=== PATIENT | male | born 1945 | race Caucasian/White ===

== ENCOUNTER 2016-04-27 09:56 | Day surgery (SDC) | payer OTHER, MEDICARE ==
[2016-04-27 10:39] VITALS: BMI 31.9
[2016-04-27] MEDS ORDERED: PROPOFOL 20 ML ONE ×2 (11:21)
[2016-04-27 12:07] VITALS: TEMP 98.1
[2016-04-27 12:43] VITALS: PULSE 63
[2016-04-27 12:55] VITALS: BP 108/62
--- NOTE | 2016-04-27 14:10 | EKG ---
Test Reason : Blood Pressure : / mmHG Vent. Rate : 061 BPM Atrial Rate : 061 BPM P-R Int : 210 ms QRS Dur : 140 ms QT Int : 466 ms P-R-T Axes : 084 079 -09 degrees QTc Int : 469 ms SINUS RHYTHM WITH 1ST DEGREE A-V BLOCK RIGHT BUNDLE BRANCH BLOCK ABNORMAL ECG WHEN COMPARED WITH ECG OF 05-MAR-2015 15:27, T WAVE INVERSION NO LONGER EVIDENT IN ANTERIOR LEADS Confirmed by MALACHI KUMAR, NICOLE ([id number]) on 04/27/2016 2:10:47 PM Referred By: Valentino Khan Confirmed By:NICOLE LY MD
== END 2016-04-27 12:56 | disposition home or self-care (01) ==
LOC: JASU-ENDO 09:56 → JOR 09:56 → JASU-ENDO 12:56
PROVIDERS: ATTEND Internal Medicine Cardiovascular Disease
PROC: 5A2204Z Restoration of Cardiac Rhythm, Single (ICD-10-PCS; principal; 2016-04-27 11:30)
DX: I48.91 Unspecified atrial fibrillation (principal)
CPT/HCPCS: 92960; 93005; 93010

== ENCOUNTER 2017-08-08 07:56 | Day surgery (SDC) | payer OTHER, MEDICARE ==
[2017-08-07 12:47] VITALS: BMI 33.7
[2017-08-08] MEDS ORDERED: PROPOFOL 20 ML ONE ×2 (08:52)
[2017-08-08] MEDS ORDERED: ETOMIDATE 20 MG/10 ML AMPUL IVPUSH ONE (09:13)
[2017-08-08 10:13] VITALS: TEMP 97.8
[2017-08-08 11:25] VITALS: BP 128/73; PULSE 80
--- NOTE | 2017-08-09 14:20 | PATH ---
Surgical Pathology Report Patient Name: [facility]. Rec. #: [id number] /Age/Gender: 1945 (Age: 71) / M Account: [id number] Location: ASU-ENDOSCOPY Taken: 08/08/2017 Received: 08/08/2017 Reported: 08/09/2017 Physicians: Lillie Louis M.D. Specimen(s) Received A: BX SECOND PORTION DUODENUM AMD BULB B: ANTRUM AND BODY C: BX ESOPHAGUS SCHATZI'S D: BX PROXIMAL TRANSVERSE COLON E: POLYP RIGHT COLON F: BX HEPATIC FLEXURE POLYP Clinical History Laryngoesophageal reflux, history of cecal adenoma, ulcer Postoperative diagnosis: Erosive antral gastritis, colon polyps, diverticulosis Final Diagnosis A. DUODENUM, SECOND PORTION AND DUODENAL BULB, BIOPSY: DUODENAL MUCOSA WITH ACUTE AND CHRONIC DUODENITIS. B. STOMACH, ANTRUM AND BODY, BIOPSY: GASTRIC ANTRUM AND BODY MUCOSA WITH MILD CHRONIC ACTIVE GASTRITIS. IMMUNOHISTOCHEMICAL STAIN FOR H. PYLORI IS NEGATIVE. C. ESOPHAGUS, SCHATZI'S, BIOPSY: SQUAMOUS MUCOSA WITHOUT SIGNIFICANT PATHOLOGIC FINDINGS. D. PROXIMAL TRANSVERSE COLON, POLYPS, BIOPSY: TUBULAR ADENOMA(S). E. COLON, RIGHT, POLYP, BIOPSY: TUBULAR ADENOMA. F. COLON, HEPATIC FLEXURE, POLYP, BIOPSY: TUBULAR ADENOMA. Electronically Signed Harmony Belle M.D. Gross Description A. Received in formalin, labeled "biopsy second portion of duodenum and bulb" are 2 dougherty, irregular portions of soft tissue measuring 0.5 and 0.6 cm. in greatest dimension. The specimens are submitted in toto in one cassette. B. Received in formalin, labeled "biopsy gastric antrum and body" are 4 dougherty, irregular portions of soft tissue ranging from 0.2-0.5 cm. in greatest dimension. The specimens are submitted in toto in one cassette. C. Received in formalin, labeled "biopsy esophagus Schatzki's" are 2 dougherty, irregular portions of soft tissue averaging 0.1 cm. in greatest dimension. The specimens are submitted in toto in one cassette. D. Received in formalin, labeled "biopsy proximal transverse colon polyp" are 3 dougherty, irregular portions of soft tissue ranging from 0.2-0.4 cm. in greatest dimension. The specimens are submitted in toto in one cassette. E. Received in formalin, labeled "biopsy right colon polyp" is a dougherty, irregular portion of soft tissue measuring 0.5 cm. in greatest dimension. The specimen is submitted in toto in one cassette. F. Received in formalin, labeled "biopsy polyp hepatic flexure" are 5 dougherty, irregular portions of soft tissue ranging from 0.2-0.7 cm. in greatest dimension. The specimens are submitted in toto in one cassette. 08/08/2017 [facility]08/08/2017
== END 2017-08-08 11:25 | disposition home or self-care (01) ==
LOC: JASU-ENDO 07:56
PROVIDERS: ATTEND Internal Medicine Gastroenterology
PROC: 0DBL8ZX Excision of Transverse Colon, Via Natural or Artificial Opening Endoscopic, Diagnostic (ICD-10-PCS; 2017-08-08)
PROC: 0DBL8ZX Excision of Transverse Colon, Via Natural or Artificial Opening Endoscopic, Diagnostic (ICD-10-PCS; 2017-08-08)
PROC: 0DB98ZX Excision of Duodenum, Via Natural or Artificial Opening Endoscopic, Diagnostic (ICD-10-PCS; 2017-08-08)
PROC: 0DB68ZX Excision of Stomach, Via Natural or Artificial Opening Endoscopic, Diagnostic (ICD-10-PCS; 2017-08-08)
PROC: 0DB38ZX Excision of Lower Esophagus, Via Natural or Artificial Opening Endoscopic, Diagnostic (ICD-10-PCS; 2017-08-08)
PROC: 0DBK8ZX Excision of Ascending Colon, Via Natural or Artificial Opening Endoscopic, Diagnostic (ICD-10-PCS; principal; 2017-08-08 09:00)
DX: Z86.010 Personal history of colon polyps (principal); D12.2 Benign neoplasm of ascending colon; D12.3 Benign neoplasm of transverse colon; K57.30 Diverticulosis of large intestine without perforation or abscess without bleeding; K64.8 Other hemorrhoids; K29.50 Unspecified chronic gastritis without bleeding; K29.80 Duodenitis without bleeding; K22.2 Esophageal obstruction; E03.9 Hypothyroidism, unspecified; E78.5 Hyperlipidemia, unspecified
CPT/HCPCS: 88305-TC; 88342-TC

== ENCOUNTER 2018-03-28 20:20 | Emergency (ER) | payer OTHER, MEDICARE ==
[2018-03-28 20:35] VITALS: BP 150/94; PULSE 90; TEMP 98.1; BMI 32.3
--- NOTE | 2018-03-28 20:40 | PDOC ---
History of Present Illness - General History Source: Patient Exam Limitations: No Limitations - History of Present Illness Initial Comments: 03/28/18 21:10 The patient is a 72 year old male, with a significant PMH of coronary artery disease, NIDDM,diabetic nephropathy, colon polys, HTN, HLD, and hypothyroidism, who presents to the emergency department complaining of a constant cough that began on 03/25/2018. The patient states he went to his PCP a few days ago where he was prescribed and completed his ZPAC medication. He also mentioned he went to his PCP today again for the same issue and was prescribed Augmentin. The patient note phlegm is white in nature accompanied with mild wheezing. The patient denies chest pain, shortness of breath, headache and dizziness. Denies fever, chills, nausea, vomit, diarrhea and constipation. PAST MEDICAL HISTORY: Mentioned in HPI PAST SURGICAL HISTORY: appendectomy, CABG, cholecystectomy FAMILY HISTORY: no pertinent history SOCIAL HISTORY: Pt lives with family and is employed. MEDICATIONS: reviewed ALLERGIES: As per nursing notes Adult ROS General: No fevers or chills, no weakness, no weight loss HEENT: No change in vision. No sore throat. No ear pain CardioVascular: No chest pain or shortness of breath Respiratory:+cough. No wheezing. Gastrointestinal: no nausea, vomiting, diarrhea or constipation, No rectal bleeding Genitourinary: No dysuria, hematuria, or frequency Musculoskeletal: No joint or muscle pain or swelling Neurologic: No headache, vertigo, dizziness or loss of consciousness Psychiatric: nor depression Skin: No rashes or easy bruising Endocrine: no increased thirst or abnormal weight change Allergic: no skin or latex allergy All other systems reviewed and normal Adult Exam: General: Well-nourished well-developed individual, no acute distress HEENT: Throat: Normal, tonsils normal, no erythema or exudate Neck: Supple, no meningeal signs, no lymphadenopathy Eyes::Pupils equal reactive and round, extraocular motion intact Chest: Nontender to palpation Cardiac: S1-S2 normal, regular rate and rhythm, no murmurs rubs or gallops Respiratory: +Coarse breath sounds bilaterally to all lung suero. Extremities: Warm, dry, no cyanosis, clubbing, or edema Skin: No rashes Neuro: Alert and oriented x3, nonfocal exam, grossly intact, normal gait Psych: Normal mood and affect <Oliva Vinson - Last Filed: 03/28/18 21:10> - General History Source: Patient Exam Limitations: No Limitations - History of Present Illness Initial Comments: 03/28/18 20:51 A portion of this note was documented by scribe services under my direction. I have reviewed the details of the note, within reason, and agree with the documentation with the following case summary and management plan written by me. Patient treated in the ED. Nursing notes are reviewed and incorporated into the medical decision-making. Vital signs reviewed. Assessment plan: This is 72-year-old male comes in complaining of cough requesting a chest x-ray. Patient has had a persistent cough for but he says several days however he has finished a Z-Blair for the cough and was started on Augmentin for today by his primary care doctor so it appears that he has had it for more than a few days. In addition that he was also started on Breo. Patient was convinced that he needed a chest x-ray and his doctor did not do it so he came in for further evaluation and a chest x-ray. Otherwise patient did denied any chest pain, shortness of breath, tightness in his chest or dyspnea with exertion. Patient does have a history of smoking but stopped many years ago Patient did have some coarse breath sounds so I will do a chest x-ray otherwise his lungs were clear 03/28/18 21:21 Chest x-ray: No acute pathology no significant change from May 2017 Patient discharged home no additional prescriptions given as he already has Augmentin and Breo <Noemy Jacob I - Last Filed: 03/28/18 21:23> - General Chief Complaint: Respiratory Stated Complaint: COUGH, WHEEZING Time Seen by Provider: 03/28/18 20:25 Past History <Oliva Vinson - Last Filed: 03/28/18 21:10> - Past Medical History Anemia: No Asthma: No Cancer: No Cardiac Disorders: Yes (CORONARY ARTERY DISEASE,STABLE ANGINA PECTORIS, AF) CVA: No COPD: No CHF: No Dementia: No Diabetes: Yes (NIDDM,DIABETIC NEPHROPATHY) GI Disorders: Yes (COLON POLYPS, BLEEDING ULCER 25 YRS AGO, H.PYLORI GASTRITIS) Disorders: No HTN: Yes Hypercholesterolemia: Yes Liver Disease: No Seizures: No Thyroid Disease: Yes (HYPOTHYROIDISM) - Surgical History Abdominal Surgery: No Appendectomy: Yes Cardiac Surgery: Yes (CABG 11/04, CARDIOVERSION) Cholecystectomy: Yes Lung Surgery: No Neurologic Surgery: No Orthopedic Surgery: No - Suicide/Smoking/Psychosocial Hx Smoking History: Unknown if ever smoked Have you smoked in the past 12 months: No If you are a former smoker, when did you quit?: 1984 Hx Alcohol Use: No Drug/Substance Use Hx: No Substance Use Type: None Hx Substance Use Treatment: No <Noemy Jacob I - Last Filed: 03/28/18 21:23> - Past Medical History Allergies/Adverse Reactions: Allergies Allergy/AdvReac Type Severity Reaction Status Date / Time codeine Allergy Verified 03/05/15 13:55 Home Medications: Ambulatory Orders Thyroid,Pork [[place] Thyroid] 90 mg PO ASDIR 10/28/13 Rosuvastatin [Crestor -] 5 mg PO HS #0 tablet 03/13/14 Metoprolol Succinate [Toprol XL -] 50 mg PO BID 03/05/15 Apixaban [Eliquis -] 2.5 mg PO BID 04/27/16 Glyburide 2.5 mg PO BID 04/27/16 metFORMIN HCL [Metformin HCl] 500 mg PO DAILY 04/27/16 Cholecalciferol (Vitamin D3) [Vitamin D3] 2,000 unit PO DAILY 03/28/18 Chromium Amino Acid Chelate [Chromium] 400 mcg PO DAILY 03/28/18 Fish Oil/E/Fatty Acid5/Iusa874 [Super [place]-3 Softgel] 1 each PO DAILY 03/28/18 Hugo [Hugo Mckeon] 500 mg PO DAILY 03/28/18 Liraglutide [Victoza -] 1.8 mg SQ DAILY@0700 03/28/18 Losartan Potassium [Cozaar -] 50 mg PO BID 03/28/18 Magnesium Oxide [Magnesium] 400 mg PO DAILY 03/28/18 Multivitamins [Tab-A-Vit -] 1 tab PO DAILY 03/28/18 Taurine [Pure Taurine] 500 mg PO DAILY 03/28/18 Ubiquinol [Active-Q] 200 mg PO DAILY 03/28/18 *Physical Exam - Vital Signs Last Vital Signs Temp Pulse Resp BP Pulse Ox 98.1 F 90 18 150/94 97 03/28/18 20:21 03/28/18 20:21 03/28/18 20:21 03/28/18 20:21 03/28/18 20:21 <Oliva Vinson - Last Filed: 03/28/18 21:10> - Vital Signs Last Vital Signs Temp Pulse Resp BP Pulse Ox 98.1 F 90 18 150/94 97 03/28/18 20:21 03/28/18 20:21 03/28/18 20:21 03/28/18 20:21 03/28/18 20:21 <Noemy Jacob I - Last Filed: 03/28/18 21:23> Moderate Sedation - Procedure Monitoring Vital Signs: Procedure Monitoring Vital Signs Temperature 98.1 F 03/28/18 20:21 Pulse Rate 90 03/28/18 20:21 Respiratory Rate 18 03/28/18 20:21 Blood Pressure 150/94 03/28/18 20:21 O2 Sat by Pulse Oximetry (%) 97 03/28/18 20:21 <Oliva Vinson - Last Filed: 03/28/18 21:10> - Procedure Monitoring Vital Signs: Procedure Monitoring Vital Signs Temperature 98.1 F 03/28/18 20:21 Pulse Rate 90 03/28/18 20:21 Respiratory Rate 18 03/28/18 20:21 Blood Pressure 150/94 03/28/18 20:21 O2 Sat by Pulse Oximetry (%) 97 03/28/18 20:21 <Noemy Jacob I - Last Filed: 03/28/18 21:23> *DC/Admit/Observation/Transfer - Attestations Scribe Attestion: 03/28/18 21:10 Documentation prepared by Oliva Vinson, acting as medical data entry clerk for Noemy Jacob MD. <Oliva Vinson - Last Filed: 03/28/18 21:10> - Discharge Dispostion Decision to Admit order: No <Noemy Jacob I - Last Filed: 03/28/18 21:23> Diagnosis at time of Disposition: Viral upper respiratory illness - Discharge Dispostion Disposition: HOME Condition at time of disposition: Stable - Referrals Referrals: Isaac Arguelles MD [Primary Care Provider] - - Patient Instructions Additional Instructions: U cough and symptoms are most likely secondary to a viral etiology, it will just have to run its course and may not improve with the antibiotics. This particular virus can last as long as 4-5 weeks, Use your Breo inhaler as directed Continue your antibiotics as prescribed Return to the emergency department immediately with ANY new, persistent or worsening symptoms. Continue any medications as previously prescribed by your physician. You should follow up with your primary doctor as soon as possible regarding today's emergency department visit. . Please make sure your doctor reviews the results of your emergency evaluation. Thank you for coming to the Emergency Department today for your care. It was a pleasure to see you today. Please note that your evaluation is INCOMPLETE until you follow-up with your doctor. - Post Discharge Activity
== END 2018-03-28 21:28 | disposition home or self-care (01) ==
LOC: FER 20:20
DX: E03.9 Hypothyroidism, unspecified (principal); I25.10 Atherosclerotic heart disease of native coronary artery without angina pectoris; E11.40 Type 2 diabetes mellitus with diabetic neuropathy, unspecified; Z79.84 Long term (current) use of oral hypoglycemic drugs; Z88.6 Allergy status to analgesic agent; Z95.1 Presence of aortocoronary bypass graft
CPT/HCPCS: 71046-TC-FY; 99281-25